=== PATIENT | female | born 1995 | race Two or more races ===

== ENCOUNTER 2024-12-30 10:10 | Inpatient (IN) | payer MEDICAID, SELFPAY ==
[2024-12-30] VITALS (20 sets, daily range): BP systolic 102–122; BP diastolic 56–79; PULSE 67–109; RESP 16–100; TEMP 36.8–37.2; O2SAT 96–100; BMI 24.7
[2024-12-30] MEDS: RINGERS LACTATED 1000 ML 1,000 ML 100 ML IV (11:20)
--- NOTE | 2024-12-30 11:22 | ESHP_ITS ---
Documentation for date of: 12/30/24 OB Labor/Induct. HPI History of Present Illness Chief complaint: painful contractions : 3 Para: 1 Term pregnancies: 1 pregnancies: 0 Living children: 0 History of Abortions: Spontaneous and Elective: 1 History of Vaginal deliveries: 1 History of sections: No History of : No Date of last menstrual period: 03/30/24 KELLE: 01/05/25 Gestational Age (weeks): 39 Gestational Age (days): 1 Gestational age based on last menstrual period: 39 History of present illness: Patient presents for regular, painful ctx. No LOF. No vaginal bleeding. Normal movement. No fevers/chills. History of Present Dating criteria: LMP confirmed by 1st trimester US Adequate Care: Yes (Started with RUPERTO then transferred to Dr. Sanford at [facility]) Obstetrical complications: none Narrative: Hx of medical ETOP Hx of 1 term uncomplicated 03/30/2020 at 38wk, 7lb Labs Maternal Blood Type: B Pos Labs: Positive: Rubella Titre, Negative: RPR, Hepatitis B, HIV, Chlamydia, Gonorrhea and Group Beta Strep and Unknown: Herpes Type 1, Herpes Type 2 and Covid-19 Review of Systems Review of Systems Narrative Review of Systems: Review of Systems Systems Reviewed: All systems reviewed, normal except as documented Constitutional Constitutional: Denies body ache(s), Denies chills, Denies fever(s) and Denies headache(s) ENT Ears, Nose, Mouth, and Throat: Denies headache(s) and Denies vertigo Cardiovascular Cardiovascular: Denies chest pain, Denies palpitations, Denies dyspnea and Denies syncope Respiratory Respiratory: Denies cough, Denies dyspnea Gastrointestinal Gastrointestinal: Denies nausea and Denies vomiting Neurologic Neurologic: Denies convulsions, Denies headache(s), Denies other visual disturbances, Denies syncope and Denies vertigo Past Medical History Family History OTHER FAMILY HX: non-contributory Surgical History SURGICAL: Negative Section Social History SOCIAL: no tobacco/ETOH/illicit drug use. , good support. Past Medical History Comments PMH COMMENT: Anxiety, no meds Migraines Meds Home Medications and Allergies Home Medications ?Medication ?Instructions ?Recorded ?Confirmed ?Type prenat.vits,maría,jog-glhx-vgkio 1 tab PO QDAY 03/30/20 03/30/20 History Allergies Allergy/AdvReac Type Severity Reaction Status Date / Time NKA* Allergy Uncoded 09/19/19 12:15 OB Exam Physical Exam Vital signs: Temp Pulse Resp BP Pulse Ox O2 Del Method 98.9 F 105 H 18 122/79 100 Room Air 12/30/24 10:25 12/30/24 10:25 12/30/24 10:25 12/30/24 10:25 12/30/24 10:56 12/30/24 10:25 Narrative: General: well developed, well nourished, no acute distress, conversant Cardiac: normal heart rate Lungs: breathing without distress Abdomen: soft, gravid, non-tender, no rebound or guarding Extremities: no pain with palpation of calves Detailed Labor and Delivery Exam Dilation (cm): 5 Effacement (%): 80 Cervix position: anterior station: -2 Consistency: soft Presentation: Vertex Membranes: intact Baseline heart rate: 140 monitor accelerations: 15x15 monitor decelerations: None care home variability: Moderate (11-25) Contraction frequency (min): q2-3min OB Assessment & Plan Assessment and Plan (1) Active labor at term: Status: Acute Assessment and plan: Nora is a 29yo with SIUP at 39&1wk presenting in active labor. Regular/painful contractions, SCE: 5/80/-1. Vitals wnl, benign exam. Reassuring assessment. PMhx/ significant for: First visit at 9wk with [facility], transferred to Dr. Sanford at [facility], no meds Plan: -Admit to L&D -Establish IV, routine labs -CEFM -Clear liquid diet -Recruiting Operations Consultant/consent re: -GBS status: negative -Anticipate -Safe to proceed (2) 39 weeks gestation of : Status: Acute
[2024-12-30 11:40] LABS: Basophils # (Auto) 0.0 Thou/mm3 (0.0-0.2); Basophils % (Auto) 0 % (0-2.5); Eosinophils # (Auto) 0.0 Thou/mm3 (0.0-0.5); Eosinophils % (Auto) 0 % (0-10); Hematocrit 38.6 % (36.0-46.0); Hemoglobin 13.1 g/dL (12.0-16.0); Immature Granulocytes Auto 0.09 Thou/mm3 (0.00-0.00); Lymphocytes # (Auto) 1.4 Thou/mm3 (1.0-4.8); Lymphocytes % (Auto) 11 % (10-50); Mean Corpuscular HGB Conc 33.9 g/dl (31.0-37.0); Mean Corpuscular Hemoglobin 33.0 pg (25.0-35.0); Mean Corpuscular Volume 97 fL (80-100); Monocytes # (Auto) 0.6 Thou/mm3 (0.0-0.8); Monocytes % (Auto) 5 % (0-12); Neutrophils # (Auto) 10.2 Thou/mm3 (1.8-7.7); Neutrophils % (Auto) 83 % (37-80); Nucleated Red Blood Cell # 0.00 Thou/mm3 (0.00-0.00); Nucleated Red Blood Cell % 0 /100 WBC (0); Platelet Count 192 Thou/mm3 (140-440); RDW Standard Deviation 45.2 fL (36.4-46.3); Red Blood Count 3.97 Miln/mm3 (4.00-5.20); White Blood Count 12.3 Thou/mm3 (3.6-11.0)
[2024-12-30] MEDS: OXYTOCIN in NS 20 units 20 UNIT/1,000 ML BAG 125 UNIT IV (11:53)
[2024-12-30 12:17] LABS: Syphilis Nonreactive (Nonreactive)
--- NOTE | 2024-12-30 12:24 | PD.LDDELS ---
Data (Mejia) Data Hx Section: No : 3 Term: 1 : 0 Livin Abortions: Spontaneous & Theraputic: 1 Delivery Data (Mejia) Labor Data Initiation of labor: Spontaneous Induction/Augmentation Agent: None ROM date: 12/30/24 ROM time: 11:11 Amniotic membrane rupture type: Artificial Amniotic fluid description: Clear Delivery Data Onset of labor date: 12/30/24 Onset of labor time: 09:30 Complete dilation date: 12/30/24 Complete dilation time: 11:35 delivery date: 12/30/24 delivery time: 11:38 Placenta delivery date: 12/30/24 Placenta delivery time: 11:44 Stage 1 total time: Labor - Stage 1 Duration 2 hours and 5 minutes Delivered by: Val Delivery nurse: Sofiya Armstrong nurse: Viktoria Yanes Aerotriangulation Specialist at delivery: No Support person(s) at delivery: FOB Delivery Method Delivery method: Normal Vaginal Delivery Presentation: Vertex Anesthesia Type Anesthesia Type: None Placenta Placenta delivery description: Spontaneous Cord blood sent to lab: Yes cord blood collection: Cord Blood Type EBL Estimated blood loss (ml): 150 Umbilical Cord cord description: 3 Vessels Additional Procedures Nora is a 29yo [id number] s/p uncomplicated at 39&1wk after presenting in active labor, delivering at 1138 on 12/30/2024. On presentation, SCE was 5cm and she very rapidly progressed to C/C/+2 at which point she began pushing. With good maternal pushing efforts, 's head delivered OA and restituted MALIK. One loose nuchal cord reduced. Right anterior shoulder delivered easily followed by posterior shoulder and corpus. Left compound hand noted. had spontaneous cry and was vigorous. Apgars 9/9. placed on maternal abdomen where nose/mouth were suctioned and dried/stimulated. After approximately 3 minutes, cord was clamped x2 and cut by FOB. Cord blood collected for typing. With fundal massage and cord traction, placenta delivered spontaneously and intact with 3 vessel centrally inserted cord. Bimanual massage performed and IV pitocin given per protocol with fundus then firm at u-2cm and hemostasis noted. Inspection of perineum and vagina revealed a small hemostatic left labial abrasion that required no repair. All counts correct x2. Mom and were doing well when I left the room. Danuta Neal MD Complications Complications: none Data (Mejia) [place] Data order: 1 's gender: Female Identification band number: [id number] weight (gms): 3345 g Weight (pounds): 7 lbs and 6.0 ozs [place] length: 50.8 cm 1 minute: 9 5 minutes: 9
[2024-12-30 18:08] LABS: Basophils # (Auto) 0.0 Thou/mm3 (0.0-0.2); Basophils % (Auto) 0 % (0-2.5); Eosinophils # (Auto) 0.0 Thou/mm3 (0.0-0.5); Eosinophils % (Auto) 0 % (0-10); Hematocrit 33.8 % (36.0-46.0); Hemoglobin 11.6 g/dL (12.0-16.0); Immature Granulocytes Auto 0.09 Thou/mm3 (0.00-0.00); Lymphocytes # (Auto) 1.1 Thou/mm3 (1.0-4.8); Lymphocytes % (Auto) 7 % (10-50); Mean Corpuscular HGB Conc 34.3 g/dl (31.0-37.0); Mean Corpuscular Hemoglobin 33.4 pg (25.0-35.0); Mean Corpuscular Volume 97 fL (80-100); Monocytes # (Auto) 0.7 Thou/mm3 (0.0-0.8); Monocytes % (Auto) 4 % (0-12); Neutrophils # (Auto) 14.1 Thou/mm3 (1.8-7.7); Neutrophils % (Auto) 88 % (37-80); Nucleated Red Blood Cell # 0.00 Thou/mm3 (0.00-0.00); Nucleated Red Blood Cell % 0 /100 WBC (0); Platelet Count 186 Thou/mm3 (140-440); RDW Standard Deviation 44.3 fL (36.4-46.3); Red Blood Count 3.47 Miln/mm3 (4.00-5.20); White Blood Count 16.0 Thou/mm3 (3.6-11.0)
[2024-12-30] MEDS: DOCUSATE SOD 100 MG CAPSULE PO (21:17)
[2024-12-31 03:37] VITALS: BP 108/77; PULSE 79; RESP 18; TEMP 36.8; O2SAT 98
[2024-12-31 08:08] VITALS: BP 111/70; PULSE 75; RESP 16; TEMP 36.8; O2SAT 99
--- NOTE | 2024-12-31 09:04 | ESDS_ITS ---
DS: Providers Provider Date of admission: 12/30/24 10:40 Primary care physician: Physician No Primary/Family Admitting Provider: Danuta Neal MD Attending Provider on Admission: Danuta Neal MD Consults: 12/30/24 11:50 Referral Routine Comment: Attending Provider on DC: Danuta Neal MD Discharging Provider: Danuta Neal MD DS: Diagnosis Discharge Diagnosis (1) care and examination immediately after delivery: Status: Acute (2) 39 weeks gestation of : Status: Acute (3) Active labor at term: Status: Acute Problem List Completed Was Problem List Reviewed/Reconciled?: Yes Summary/Hosp Course Brief History: Patient presents for regular, painful ctx. No LOF. No vaginal bleeding. Normal movement. No fevers/chills. Nora is a 29yo [id number] s/p uncomplicated at 39&1wk after presenting in active labor, delivering at 1138 on 12/30/24. She has had an uncomplicated course, meeting all milestones and feels ready for discharge home. She is ambulating without lightheadedness, tolerating regular diet no n/v, sp ontaneously voiding without issue. She has no chest pain or shortness of breath. No fevers or chills. Minimal, appropriate discomfort. Vitals normal, benign exam. Hemodynamically stable with no evidence of infection. PP Hgb 11.6 from 13.1. Peripartum Data Delivery Method: Normal Vaginal Delivery Status at Discharge Functional status at discharge: independent ambulation Overall status at discharge: patient is back to baseline Time Spent with Patient Time attestation: Total time spent providing and/or coordinating discharge services: Exam Vital Signs Temp Pulse Resp BP Pulse Ox O2 Del Method 98.3 F 75 16 111/70 99 Room Air 12/31/24 08:08 12/31/24 08:08 12/31/24 08:08 12/31/24 08:08 12/31/24 08:08 12/31/24 08:08 Narrative Exam General: well developed, well nourished, no acute distress, conversant Cardiac: normal heart rate Lungs: breathing without distress Abdomen: soft, post-gravid, non-tender, no rebound or guarding, Fundus firm at u-3cm. Extremities: no pain with palpation of calves, trace edema of BLE Discharge Plan Plan Patient Disposition: HOME (Self Care) Patient condition on transfer: Stable Prescriptions/Referrals Prescriptions/Med Rec: New ibuprofen 400 mg Tablet 800 mg PO Q8H PRN (Reason: See Comments) 10 Days Qty: 20 0RF docusate sodium 100 mg Capsule 100 mg PO BID 10 Days Qty: 20 0RF No Action Vitamin Tablet 1 tab PO QDAY Referrals: No Primary/Family,Physician [Primary Care Provider] - Patient/Caregiver Discharge Instructions Discharge Activity: activity as tolerated and other Other Discharge Activity Instructions:: vaginal rest and no heavy lifting more than 10 pounds for 6 weeks Other Discharge Diet Instructions: regular diet Education Materials: After a Vaginal Print Language: Macedonian Activity Restrictions/Additional Instructions: follow up with Dr. Sanford in 2-4 weeks, call his office to schedule appointment Stand Alone Forms: Sarah Crawford Info., Patient Portal Info Letter Discharge Order Discharge Orders: Discharge (Routine); Ordered 12/31/24 Ordered By: Danuta Neal Planned Discharge Date 12/31/24
[2024-12-31] MEDS: DOCUSATE SOD 100 MG CAPSULE PO (09:05)
[2024-12-31 11:38] VITALS: BP 111/71; PULSE 81; RESP 17; TEMP 37.2; O2SAT 98
== END 2024-12-31 13:09 | disposition home or self-care (01) | DRG 560 ==
LOC: S4SX 11:29 → S4NX 13:55
PROVIDERS: Admitting Provider Obstetrics & Gynecology; Visit Provider Obstetrics & Gynecology
DX: O69.81X0 Labor and delivery complicated by cord around neck, without compression, not applicable or unspecified (principal); O71.82 Other specified trauma to perineum and vulva; Z37.0 Single live birth; Z3A.39 39 weeks gestation of pregnancy
CPT/HCPCS: 36415; 59025; 85025; 86780; 86850; 86900; 86901; J2590; J7120; A9270